=== PATIENT | female | born 2000 | race Caucasian/White ===

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

== ENCOUNTER 2018-05-26 19:33 | Inpatient (IN) | payer OTHER ==
[~2018-05-26] VITALS: Ht 172.7 cm; Wt 90.9 kg
[~2018-05-26 19:33] MED LIST changes: +AMOXICILLIN500 M3 PO; +CLARITIN10 MG PO; +FLONASE ALLERG9.9 ML NAS; +PREDNISONE10 MG PO
[2018-05-26 19:37] VITALS: BP 130/59
[2018-05-26 20:29] LABS: BILIRUBIN 2+ (NEGATIVE); BLOOD NEGATIVE (NEGATIVE); CLARITY SL CLOUDY (CLEAR); COLOR ORANGE (YELLOW); GLUCOSE TRACE (NEGATIVE); KETONE TRACE (NEGATIVE); LEUKO ESTERASE 1+ (NEGATIVE); NITRITE NEGATIVE (NEGATIVE); SPECIFIC GRAVITY >= 1.030 (1.005-1.030)
[2018-05-26 20:38] LABS: BACTERIA 2+; EPITHELIAL CELLS TNTC; WBC 16-20 wbc/hpf (0-5)
[2018-05-26 20:41] LABS: BASO % 0.3 % (0.0-1.0); EOS % 0.3 % (1.0-4.0); HEMOGLOBIN 13.3 g/dl (12.0-16.0); LYMPH # 0.6 10*3/uL (1.3-4.4); LYMPH % 8.8 % (27.0-41.0); MEAN CELL VOLUME 86.8 fl (81.0-99.0); MEAN CORPUSCULAR HGB 28.9 pg (27.0-31.0); MEAN CORPUSCULAR HGB CONC 33.3 g/dl (33.0-37.0); MEAN PLATELET VOLUME 10.5 fl (9.6-12.3); MONO # 0.4 10*3/uL (0.1-1.0); MONO % 5.9 % (3.0-9.0); NEUT # 6.1 10*3/uL (2.3-7.9); NEUT % 84.4 % (47.0-73.0); PLATELET COUNT AUTOMATED 212 10*3/uL (130-400); RED BLOOD COUNT 4.61 10*6/uL (4.10-5.10); RED CELL DISTRI WIDTH 12.5 % (0-14.5); WHITE BLOOD COUNT 7.3 10*3/uL (4.8-10.8)
[2018-05-26 20:55] LABS: ALBUMIN 3.3 gm/dl (3.1-4.5); ALKALINE PHOSPHATASE 206 U/L (45-117); BUN 9 mg/dl (7-24); CHLORIDE 106 mmol/L (98-107); CREATININE 0.87 mg/dL (0.55-1.02); LIPASE 222 U/L (73-393); POTASSIUM 3.5 mmol/L (3.5-5.1); SGOT/AST 287 IU/L (3-35); SGPT/ALT 210 U/L (12-78); SODIUM 140 mmol/L (136-145); TOTAL PROTEIN 6.3 gm/dL (6.4-8.2)
[2018-05-26 22:23] VITALS: BP 222/118
[2018-05-27 00:25] VITALS: BP 132/74
[2018-05-27 06:23] LABS: BASO % 0.6 % (0.0-1.0); EOS # 0.1 10*3/uL (0.0-0.4); EOS % 2.7 % (1.0-4.0); LYMPH # 1.3 10*3/uL (1.3-4.4); MEAN CELL VOLUME 87.7 fl (81.0-99.0); MEAN CORPUSCULAR HGB 28.5 pg (27.0-31.0); MEAN CORPUSCULAR HGB CONC 32.5 g/dl (33.0-37.0); MEAN PLATELET VOLUME 10.8 fl (9.6-12.3); MONO # 0.6 10*3/uL (0.1-1.0); MONO % 10.7 % (3.0-9.0); NEUT # 3.2 10*3/uL (2.3-7.9); NEUT % 60.6 % (47.0-73.0); PLATELET COUNT AUTOMATED 215 10*3/uL (130-400); RED BLOOD COUNT 4.56 10*6/uL (4.10-5.10); RED CELL DISTRI WIDTH 12.6 % (0-14.5); WHITE BLOOD COUNT 5.2 10*3/uL (4.8-10.8)
[2018-05-27 06:51] LABS: ALKALINE PHOSPHATASE 235 U/L (45-117); BUN 7 mg/dl (7-24); CHLORIDE 110 mmol/L (98-107); CHOLESTEROL 152 mg/dL (<200); CREATININE 0.69 mg/dL (0.55-1.02); HDL CHOLESTEROL 69 mg/dl (40-60); LDL CHOLESTEROL 73 mg/dL (9-159); PHOSPHOROUS 2.9 mg/dL (2.5-4.9); POTASSIUM 3.5 mmol/L (3.5-5.1); SGOT/AST 250 IU/L (3-35); SODIUM 143 mmol/L (136-145); TOTAL PROTEIN 6.2 gm/dL (6.4-8.2); TRIGLYCERIDES 52 mg/dl (<150); VLDL CHOLESTEROL 10 mg/dL (6-40)
[2018-05-27 06:55] LABS: SGPT/ALT 240 U/L (12-78)
[2018-05-27 07:25] LABS: VITAMIN D, 25-HYDROXY 19.2 ng/mL (30-100)
[2018-05-27 08:00] VITALS: BP 126/65
[2018-05-27 12:00] VITALS: BP 110/57
[2018-05-27 12:26] LABS: BILIRUBIN, DIRECT 1.7 mg/dL (0.0-0.2); TOTAL PROTEIN 5.9 gm/dL (6.4-8.2)
[2018-05-27 16:00] VITALS: BP 127/60
[2018-05-27 20:00] VITALS: BP 111/53
[2018-05-28 08:07] LABS: HEPATITIS B SURFACE AG Negative (Negative); HEPATITIS C VIRUS ANTIBODY <0.1 s/co (0.0-0.9)
== END 2018-05-27 21:30 | disposition left against medical advice (07) | DRG 445 ==
LOC: ED 19:33 → EDHOLD 23:45 → 5E 23:45
PROVIDERS: Internal Medicine; Internal Medicine Gastroenterology; Physician Assistant
DX: K80.20 Calculus of gallbladder without cholecystitis without obstruction (principal); E44.0 Moderate protein-calorie malnutrition; K83.8 Other specified diseases of biliary tract; R74.0 Nonspecific elevation of levels of transaminase and lactic acid dehydrogenase [LDH]; E80.6 Other disorders of bilirubin metabolism; E55.9 Vitamin D deficiency, unspecified; Z53.21 Procedure and treatment not carried out due to patient leaving prior to being seen by health care provider; G43.909 Migraine, unspecified, not intractable, without status migrainosus; Z82.49 Family history of ischemic heart disease and other diseases of the circulatory system; Z68.30 Body mass index [BMI] 30.0-30.9, adult

== ENCOUNTER 2019-05-01 00:02 | Emergency (ER) | payer OTHER ==
[~2019-05-01] VITALS: Ht 172.7 cm; Wt 102.1 kg
[2019-05-01 01:05] LABS: BILIRUBIN NEGATIVE (NEGATIVE); BLOOD 3+ (NEGATIVE); CLARITY SL CLOUDY (CLEAR); COLOR YELLOW (YELLOW); GLUCOSE NEGATIVE (NEGATIVE); KETONE NEGATIVE (NEGATIVE); LEUKO ESTERASE TRACE (NEGATIVE); NITRITE NEGATIVE (NEGATIVE); SPECIFIC GRAVITY 1.025 (1.005-1.030); UROBILINOGEN 0.2 E.U./dl (0.2-1.0)
[2019-05-01 01:12] LABS: BACTERIA TRACE; EPITHELIAL CELLS 20-25; RBC 16-20 rbc/hpf (0-2)
[2019-05-01 01:19] LABS: HEMATOCRIT 42.6 % (37.0-47.0); HEMOGLOBIN 14.2 g/dl (12.0-16.0); MEAN CELL VOLUME 83.9 fl (81.0-99.0); MEAN CORPUSCULAR HGB CONC 33.3 g/dl (33.0-37.0); MEAN PLATELET VOLUME 10.6 fl (9.6-12.3); PLATELET COUNT AUTOMATED 237 10*3/uL (130-400); RED BLOOD COUNT 5.08 10*6/uL (4.10-5.10); RED CELL DISTRI WIDTH 13.2 % (0-14.5); WHITE BLOOD COUNT 14.4 10*3/uL (4.8-10.8)
[2019-05-01 01:35] LABS: ALBUMIN 3.6 gm/dl (3.1-4.5); ALKALINE PHOSPHATASE 70 U/L (45-117); BUN 13 mg/dl (7-24); CHLORIDE 105 mmol/L (98-107); CREATININE 0.89 mg/dL (0.55-1.02); LIPASE 91 U/L (73-393); POTASSIUM 3.5 mmol/L (3.5-5.1); SGOT/AST 13 IU/L (3-35); SGPT/ALT 22 U/L (12-78); SODIUM 139 mmol/L (136-145); TOTAL PROTEIN 6.7 gm/dL (6.4-8.2)
[2019-05-01 01:38] LABS: PLATELET SUFFICIENCY NORMAL (NORMAL); TOTAL CELLS COUNTED 100 #CELLS
== END 2019-05-01 03:00 | disposition home or self-care (01) ==
LOC: ED 00:02
PROVIDERS: Emergency Medicine
DX: K80.20 Calculus of gallbladder without cholecystitis without obstruction (principal); G43.909 Migraine, unspecified, not intractable, without status migrainosus

== ENCOUNTER → 2019-05-15 | Outpatient (CLI) | payer OTHER ==
[2019-05-15 15:01] LABS: ALBUMIN 3.6 gm/dl (3.1-4.5); BILIRUBIN, DIRECT 0.2 mg/dL (0.0-0.2)
== END | disposition home or self-care (01) ==
LOC: LAB 14:18
PROVIDERS: Surgery
DX: K80.20 Calculus of gallbladder without cholecystitis without obstruction (principal)

== ENCOUNTER 2020-09-16 11:07 | Emergency (ER) | payer OTHER ==
[~2020-09-16] VITALS: Wt 106.6 kg
[2020-09-16 11:50] LABS: BASO % 0.2 % (0.0-1.0); EOS % 0.5 % (1.0-4.0); HEMATOCRIT 47.8 % (37.0-47.0); LYMPH # 1.3 10*3/uL (1.3-4.4); MEAN CORPUSCULAR HGB 27.2 pg (27.0-31.0); MEAN CORPUSCULAR HGB CONC 32.4 g/dl (33.0-37.0); MEAN PLATELET VOLUME 10.3 fl (9.6-12.3); MONO # 0.5 10*3/uL (0.1-1.0); MONO % 6.2 % (3.0-9.0); NEUT # 6.5 10*3/uL (2.3-7.9); PLATELET COUNT AUTOMATED 254 10*3/uL (130-400); RED BLOOD COUNT 5.69 10*6/uL (4.10-5.10); RED CELL DISTRI WIDTH 12.4 % (0-14.5); WHITE BLOOD COUNT 8.4 10*3/uL (4.8-10.8)
[2020-09-16 12:08] LABS: ALBUMIN 3.8 gm/dl (3.1-4.5); ALKALINE PHOSPHATASE 85 U/L (45-117); BUN 11 mg/dl (7-24); CHLORIDE 105 mmol/L (98-107); CREATININE 0.81 mg/dL (0.55-1.02); POTASSIUM 3.7 mmol/L (3.5-5.1); SGOT/AST 11 IU/L (3-35); SGPT/ALT 21 U/L (12-78); SODIUM 139 mmol/L (136-145); TOTAL PROTEIN 7.3 gm/dL (6.4-8.2)
[2020-09-16 12:09] LABS: B-hCG (QUALITATIVE) NEGATIVE (NEGATIVE); TROPONIN I < 0.015 ng/ml (<0.045)
[2020-09-16 12:29] LABS: BILIRUBIN Negative (Negative); BLOOD Negative (Negative); CLARITY Clear (Clear); COLOR Yellow (Yellow); GLUCOSE Negative (Negative); KETONE Negative (Negative); LEUKO ESTERASE Trace (Negative); NITRITE Negative (Negative); SPECIFIC GRAVITY <= 1.005 (1.001-1.030); UROBILINOGEN 0.2 E.U./dl (0.0-1.0)
[2020-09-16 12:49] LABS: BACTERIA 1+
== END 2020-09-16 13:41 | disposition home or self-care (01) ==
LOC: ED 11:07
PROVIDERS: Physician Assistant
DX: B27.90 Infectious mononucleosis, unspecified without complication (principal); R55 Syncope and collapse

== ENCOUNTER 2022-04-23 11:03 | Emergency (ER) | payer OTHER ==
[~2022-04-23] VITALS: Ht 172.7 cm; Wt 111.1 kg
[2022-04-23] MEDS ORDERED: ZANAFLEX4 MG PO (12:39)
[2022-04-23] MEDS ORDERED: NAPROSYN500 MG PO (12:39)
== END 2022-04-23 12:45 | disposition home or self-care (01) ==
LOC: ED 11:03
DX: S86.912A Strain of unspecified muscle(s) and tendon(s) at lower leg level, left leg, initial encounter (principal); W01.0XXA Fall on same level from slipping, tripping and stumbling without subsequent striking against object, initial encounter; Y93.89 Activity, other specified; Y92.89 Other specified places as the place of occurrence of the external cause; Y99.8 Other external cause status

== ENCOUNTER 2022-07-14 19:33 | Emergency (ER) | payer OTHER ==
[~2022-07-14 19:33] MED LIST changes: +NAPROSYN500 MG PO; +ZANAFLEX4 MG PO
[2022-07-14] MEDS ORDERED: AMOX-CLAV 875-1 EACH PO (20:11)
== END 2022-07-14 20:14 | disposition home or self-care (01) ==
LOC: ED 19:33
DX: H66.91 Otitis media, unspecified, right ear (principal); Z88.8 Allergy status to other drugs, medicaments and biological substances; Z98.890 Other specified postprocedural states

== ENCOUNTER 2022-09-30 19:32 | Emergency (ER) | payer OTHER ==
[~2022-09-30] VITALS: Ht 172.7 cm; Wt 95.3 kg
[~2022-09-30 19:32] MED LIST changes: +AMOX-CLAV 875-1 EACH PO
[2022-09-30 20:02] LABS: BASO % 0.4 % (0.0-1.0); EOS % 0.1 % (1.0-4.0); HEMATOCRIT 48.3 % (37.0-47.0); LYMPH # 1.2 10*3/uL (1.3-4.4); LYMPH % 11.5 % (27.0-41.0); MEAN CELL VOLUME 84.9 fl (81.0-99.0); MEAN CORPUSCULAR HGB 27.9 pg (27.0-31.0); MEAN CORPUSCULAR HGB CONC 32.9 g/dl (33.0-37.0); MEAN PLATELET VOLUME 10.5 fl (9.6-12.3); MONO # 0.6 10*3/uL (0.1-1.0); MONO % 5.8 % (3.0-9.0); NEUT # 8.8 10*3/uL (2.3-7.9); NEUT % 81.9 % (47.0-73.0); PLATELET COUNT AUTOMATED 259 10*3/uL (130-400); RED BLOOD COUNT 5.69 10*6/uL (4.10-5.10); RED CELL DISTRI WIDTH 12.3 % (0-14.5); WHITE BLOOD COUNT 10.8 10*3/uL (4.8-10.8)
[2022-09-30 20:17] LABS: ALKALINE PHOSPHATASE 70 U/L (46-116); BUN 11 mg/dl (9-23); CHLORIDE 103 mmol/L (98-107); LIPASE 29 U/L (12-53); POTASSIUM 3.9 mmol/L (3.4-5.1); SGPT/ALT 17 U/L (10-49); TOTAL PROTEIN 6.8 gm/dL (6.0-8.0)
[2022-09-30] MEDS ORDERED: ONDANSETRON4 MG SL (20:48)
== END 2022-09-30 20:54 | disposition home or self-care (01) ==
LOC: ED 19:32
PROVIDERS: Physician Assistant
DX: K52.9 Noninfective gastroenteritis and colitis, unspecified (principal); Z88.8 Allergy status to other drugs, medicaments and biological substances; Z98.890 Other specified postprocedural states

== ENCOUNTER 2023-10-25 20:35 | Emergency (ER) | payer OTHER ==
[~2023-10-25] VITALS: Ht 175.2 cm; Wt 111.1 kg
[~2023-10-25 20:35] MED LIST changes: +ONDANSETRON4 MG SL
[2023-10-25 21:07] LABS: BASO # 0.1 10*3/uL (0.0-0.1); BASO % 0.5 % (0.0-1.0); EOS # 0.1 10*3/uL (0.0-0.4); EOS % 0.6 % (1.0-4.0); HEMATOCRIT 44.4 % (37.0-47.0); LYMPH # 2.4 10*3/uL (1.3-4.4); MEAN CELL VOLUME 85.5 fl (81.0-99.0); MEAN CORPUSCULAR HGB 27.4 pg (27.0-31.0); MONO # 0.8 10*3/uL (0.1-1.0); MONO % 7.5 % (3.0-9.0); NEUT # 7.5 10*3/uL (2.3-7.9); NEUT % 69.2 % (47.0-73.0); PLATELET COUNT AUTOMATED 287 10*3/uL (130-400); RED BLOOD COUNT 5.19 10*6/uL (4.10-5.10); RED CELL DISTRI WIDTH 12.5 % (0-14.5); WHITE BLOOD COUNT 10.8 10*3/uL (4.8-10.8)
[2023-10-25 21:24] LABS: BUN 13 mg/dl (9-23); CHLORIDE 105 mmol/L (98-107); POTASSIUM 3.8 mmol/L (3.4-5.1)
[2023-10-25] MEDS ORDERED: Enoxaparin Sodium 100 MG/ML SYR SC ONE (22:40)
== END 2023-10-25 22:44 | disposition home or self-care (01) ==
LOC: ED 20:35
PROVIDERS: Internal Medicine
DX: M79.89 Other specified soft tissue disorders (principal); R79.9 Abnormal finding of blood chemistry, unspecified; J45.909 Unspecified asthma, uncomplicated; G43.909 Migraine, unspecified, not intractable, without status migrainosus; Z88.8 Allergy status to other drugs, medicaments and biological substances; Z98.890 Other specified postprocedural states

== ENCOUNTER → 2023-10-26 | Outpatient (CLI) | payer OTHER | END | disposition home or self-care (01) | LOC: US 08:09 | PROVIDERS: ATTEND Internal Medicine | DX: M71.22 Synovial cyst of popliteal space [Baker], left knee (principal); M79.605 Pain in left leg; R60.0 Localized edema ==

== ENCOUNTER 2024-10-08 20:34 | Emergency (ER) | payer OTHER ==
[~2024-10-08] VITALS: Ht 172.7 cm; Wt 112.5 kg
[2024-10-08] MEDS ORDERED: PREDNISONE20 M1 PO (21:10)
[2024-10-08] MEDS ORDERED: methylPREDNISolone sod succ 125 MG VIAL IM ONE (21:10)
== END 2024-10-08 21:21 | disposition home or self-care (01) ==
LOC: ED 20:34
DX: L25.8 Unspecified contact dermatitis due to other agents (principal); J45.909 Unspecified asthma, uncomplicated; G43.909 Migraine, unspecified, not intractable, without status migrainosus; Z98.890 Other specified postprocedural states

== ENCOUNTER → 2025-01-02 | Outpatient (CLI) | payer OTHER ==
[~2025-01-02] MED LIST changes: +PREDNISONE20 M1 PO
== END | disposition home or self-care (01) ==
LOC: US 13:21
PROVIDERS: ATTEND Physician Assistant Surgical
DX: M71.22 Synovial cyst of popliteal space [Baker], left knee (principal); M25.562 Pain in left knee; M79.662 Pain in left lower leg; M79.89 Other specified soft tissue disorders

== ENCOUNTER → 2025-07-10 | Outpatient (CLI) | payer OTHER | END | disposition home or self-care (01) | LOC: RAD 14:46 | PROVIDERS: ATTEND Nurse Practitioner Family | DX: J34.2 Deviated nasal septum (principal); G44.52 New daily persistent headache (NDPH) ==